=== PATIENT | male | born 1980 | race African-American/Black ===

== ENCOUNTER 2017-04-13 04:10 | Emergency (ER) | payer SELFPAY ==
[~2017-04-13] VITALS: Ht 172.7 cm; Wt 113.0 kg
[2017-04-13 04:14] VITALS: BP 116/76; PULSE 108; RESP 18; TEMP 98.5; O2SAT 97
[2017-04-13] MEDS ORDERED: LIDOCAINE HCL 1% 50 ML VIAL INFIL ONE (04:45)
[2017-04-13] MEDS ORDERED: AMPICILLIN-SULBACTAM INJ 3 GM in SODIUM CHLORIDE 0.9% INJ 100 ML IV ONE (04:45)
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
[2017-04-13] MEDS ORDERED: AUGM875T3 PO ×2 (05:33→08:19)
[2017-04-13] MEDS ORDERED: DICL50TA3 PO ×2 (05:33→08:19)
== END 2017-04-13 09:33 | disposition home or self-care (01) ==
LOC: NEPD 04:10
DX: S61.451A Open bite of right hand, initial encounter (principal); S93.601A Unspecified sprain of right foot, initial encounter; Y04.1XXA Assault by human bite, initial encounter
CPT/HCPCS: 64450; 73130; 73630; 96360; 99284; J0295

== ENCOUNTER 2017-06-19 09:05 | Emergency (ER) | payer SELFPAY ==
[~2017-06-19] VITALS: Ht 167.6 cm; Wt 118.0 kg
[~2017-06-19 09:05] MED LIST: AUGM875T3 PO; DICL50TA3 PO
[2017-06-19 09:11] VITALS: BP 147/81; PULSE 72; RESP 20; TEMP 98.8; O2SAT 98
--- NOTE | 2017-06-19 10:13 | PD ---
HPI Chief Complaint: Oral / Dental Pain or Problem Time Seen by Provider: 09:41 Travel History International Travel<30 days: No Contact w/Intl Traveler<30days: No Traveled to known affect area: No History of Present Illness HPI Patient comes to the emergency department for evaluation of a painful oral lesion ongoing for at least a month. Patient reports the sore showed up after he tried to pull his own tooth causing it to partially chip off. Patient denies anything making the pain better or worse. Denies any pain in his teeth or jaw. Patient reports he has been rinsing his mouth with mouthwash for symptomatic relief. Describes pain as just a soreness without radiation. Denies any fevers, unintentional weight loss, difficulty swallowing, headache, chest pain, shortness of breath, or other known injury. History Social History Alcohol Use: Yes ( ) Tobacco Use: Yes (1 PPD) Allergies-Medications (Allergen,Severity, Reaction): Coded Allergies: No Known Allergies (Verified Allergy, Unknown, 06/19/17) banana (Verified Adverse Reaction, Mild, Nausea/Vomiting, 06/19/17) Reported Meds & Prescriptions Reported Meds & Active Scripts Active Review of Systems Except as stated in HPI: all other systems reviewed are Neg Physical Exam Narrative GENERAL: Well-developed, overly nourished, in no acute distress, and non-ill appearing. SKIN: Focused skin assessment warm and dry. HEAD: Atraumatic. Normocephalic. EYES: Pupils equal and round. EOMI. No scleral icterus. No injection or drainage. ENT: No nasal bleeding or discharge. Mucous membranes pink and moist. No visible or palpable abscess. No reducible dental pain. Patient is a small lesion noted on his right and oral mucosa near the back molars. There is no fluctuation, drainage, or crepitus. Appears to be from patient showing on his jaw, however cancerous lesion cannot be excluded. This was explained to the patient. Along with the importance of follow-up outside the ER. Floor the mouth, submandibular, and submental are all soft palpation. Uvula is midline NECK: Trachea midline. No cervical lymphadenopathy. Supple. No nuclear rigidity. RESPIRATORY: No accessory muscle use. No respiratory distress. MUSCULOSKELETAL: No obvious deformities. No clubbing. No cyanosis. No edema. Full range of motion. NEUROLOGICAL: Awake and alert. No obvious cranial nerve deficits. Motor grossly within normal limits. Normal speech. PSYCHIATRIC: Appropriate mood and affect; insight and judgment normal. Data Data Last Documented VS Vital Signs Date Time Temp Pulse Resp B/P (MAP) Pulse Ox O2 Delivery O2 Flow Rate FiO2 06/19/17 09:11 98.8 72 20 147/81 (103) 98 MDM Medical Screen Exam Complete: Yes Emergency Medical Condition: No Narrative Course History and physical exam findings are not consistent with an emergent medical condition. He was given the option of receiving additional care, but has declined. Therefore the appropriate counseling recommendations were discussed with the patient and he was instructed to follow-up with his primary care physician and/ or dentist as soon as possible for reevaluation. Patient was also informed of community resources from which he can obtain additional care. He is agreeable and verbalizes an understanding of the proposed plan. The patient states he will immediately return to the emergency department if his current complaints do not improve, new symptoms arise, or emergent condition develops. Patient ambulated out of the emergency department without difficulty. Primary Impression: Encounter for medical screening examination Disposition: [facility]-ED USE ONLY Condition: Stable Cody Reddy Jun 19, 2017 10:13
== END 2017-06-19 09:57 | disposition left against medical advice (07) ==
LOC: NEPK 09:05
DX: Z13.9 Encounter for screening, unspecified (principal); F17.210 Nicotine dependence, cigarettes, uncomplicated
CPT/HCPCS: 99281